=== PATIENT | female | born 1980 | race Caucasian/White ===

== ENCOUNTER 2020-08-09 08:34 | Inpatient (IN) | payer OTHER ==
[2020-08-09] MEDS ORDERED: Sodium Chloride 0.9% 1,000 ML IV STA (08:53)
[2020-08-09] MEDS ORDERED: Sodium Chloride 0.9% 10 ML Syringe FLUSH PRN (08:53)
[2020-08-09] MEDS ORDERED: Ondansetron 4 MG/2 ML SDV IVPUSH ONE (08:53)
[2020-08-09] MEDS ORDERED: HYDROmorphone 1 MG/ML Syringe IVPUSH ONE (08:55)
--- NOTE | 2020-08-09 09:01 | EDM.PDOC ---
ED HPI GENERAL MEDICAL PROBLEM - General Chief Complaint: Abdominal Pain Stated Complaint: ABDOMINAL PAIN/VOMITING Time Seen by Provider: 08/09/20 08:50 Source of Information: Reports: Patient History Limitations: Reports: No Limitations - History of Present Illness INITIAL COMMENTS - FREE TEXT/NARRATIVE: The patient presents with right upper abdominal pain. This started last night about midnight. She has nausea and vomiting. She is an [facility] [place]. She last ate at 8pm lat night. She still has her gallbladder and appendix. They gave her a shot of promethazine and tried some ibuprofen and mylanta. That has not helped. She has no fever, chills, cough, chest pain, shortness of breath, diarrhea or dysuria. Onset: Sudden Duration: Hour(s): Location: Reports: Abdomen Quality: Reports: Sharp Severity: Severe Improves with: Reports: None Worsens with: Reports: None Associated Symptoms: Reports: Nausea/Vomiting. Denies: Chest Pain, Cough, Fever/Chills, Headaches, Shortness of Breath Right Upper Abdomen Pain Score (Numeric/FACES): 8 - Related Data Allergies Allergy/AdvReac Type Severity Reaction Status Date / Time No Known Allergies Allergy Verified 08/09/20 08:43 Home Meds: Home Meds Escitalopram Oxalate [Lexapro] 20 mg PO DAILY 08/09/20 [History] Melatonin 5 mg PO BEDTIME 08/09/20 [History] Prazosin HCl [Prazosin] 2 mg PO BEDTIME 08/09/20 [History] busPIRone [Buspar] 15 mg PO BID 08/09/20 [History] Past Medical History Psychiatric History: Reports: Anxiety, Depression, PTSD Social & Family History - Tobacco Use Tobacco Use Status *Q: Former Tobacco User Used Tobacco, but Quit: Yes Month/Year Tobacco Last Used: 4 months - Recreational Drug Use Recreational Drug Use: Yes Recreational Drug Type: Reports: Marijuana/Hashish ED ROS GENERAL - Review of Systems Review Of Systems: See Below Constitutional: Reports: No Symptoms HEENT: Reports: No Symptoms Respiratory: Reports: No Symptoms Cardiovascular: Reports: No Symptoms Endocrine: Reports: No Symptoms GI/Abdominal: Reports: Abdominal Pain, Nausea, Vomiting. Denies: Diarrhea : Reports: No Symptoms Musculoskeletal: Reports: No Symptoms Skin: Reports: No Symptoms ED EXAM, GI/ABD - Physical Exam Exam: See Below Exam Limited By: No Limitations General Appearance: Alert, No Apparent Distress Ears: Normal External Exam Nose: Normal Inspection Head: Atraumatic, Normocephalic Neck: Normal Inspection Respiratory/Chest: No Respiratory Distress, Lungs Clear, Normal Breath Sounds Cardiovascular: Regular Rate, Rhythm, No Edema, No Murmur GI/Abdominal Exam: Soft, No Organomegaly, No Mass, Tender (Moderate to severe tenderness to the right upper abdomen) Back Exam: Normal Inspection Extremities: Normal Inspection Course - Vital Signs Last Recorded V/S: Last Vital Signs Temp 97.4 F 08/09/20 08:42 Pulse 81 08/09/20 08:42 Resp 20 08/09/20 08:42 BP 150/76 H 08/09/20 08:42 Pulse Ox 100 08/09/20 08:42 - Orders/Labs/Meds Orders: Active Orders 24 hr Category Date Time Status Peripheral IV Care [RC] . DIRECTED Care 08/09/20 08:53 Active Abdomen Ltd [US] Stat Exams 08/09/20 08:53 Taken Abdomen wo Cont [MR] Stat Exams 08/10/20 10:28 Ordered CORONAVIRUS COVID-19 CRISTY [MOLEC] Stat Lab 08/09/20 10:58 Received Sodium Chloride 0.9% [Saline Flush] Med 08/09/20 08:53 Active 10 ml FLUSH ASDIRECTED PRN ED Antiemetic Medication Reflex [OM.PC] Stat Oth 08/09/20 08:54 Ordered Peripheral IV Insertion Adult [OM.PC] Stat Oth 08/09/20 08:53 Ordered Medication Orders Sodium Chloride (Sodium Chloride 0.9% 10 Ml Syringe) 10 ml FLUSH ASDIRECTED PRN PRN Reason: Keep Vein Open Last Admin: 08/09/20 09:01 Dose: 10 ml Documented by: VONNIE Labs: Laboratory Tests 08/09/20 08/09/20 08/09/20 Range/Units 08:45 08:45 08:45 WBC 10.34 H (3.98-10.04) K/mm3 RBC 4.80 (3.98-5.22) M/mm3 Hgb 12.9 (11.2-15.7) gm/dl Hct 38.9 (34.1-44.9) % MCV 81.0 (79.4-94.8) fl MCH 26.9 (25.6-32.2) pg MCHC 33.2 (32.2-35.5) g/dl RDW Std Deviation 38.1 (36.4-46.3) fL Plt Count 372 H (182-369) K/mm3 MPV 9.7 (9.4-12.3) fl Neut % (Auto) 77.8 H (34.0-71.1) % Lymph % (Auto) 15.7 L (19.3-51.7) % [place] % (Auto) 5.8 (4.7-12.5) % Eos % (Auto) 0.2 L (0.7-5.8) Baso % (Auto) 0.4 (0.1-1.2) % Neut # (Auto) 8.05 H (1.56-6.13) K/mm3 Lymph # (Auto) 1.62 (1.18-3.74) K/mm3 [place] # (Auto) 0.60 H (0.24-0.36) K/mm3 Eos # (Auto) 0.02 L (0.04-0.36) K/mm3 Baso # (Auto) 0.04 (0.01-0.08) K/mm3 Manual Slide Review Normal smear Sodium 136 (136-145) mEq/L Potassium 3.8 (3.5-5.1) mEq/L Chloride 99 (98-107) mEq/L Carbon Dioxide 22 (21-32) mEq/L Anion Gap 18.8 H (5-15) BUN 12 (7-18) mg/dL Creatinine 0.9 (0.55-1.02) mg/dL Est Cr Clr Drug Dosing 64.40 mL/min Estimated GFR (MDRD) > 60 (>60) mL/min BUN/Creatinine Ratio 13.3 L (14-18) Glucose 179 H (70-99) mg/dL Calcium 9.2 (8.5-10.1) mg/dL Total Bilirubin 0.6 (0.2-1.0) mg/dL AST 18 (15-37) U/L ALT 27 (14-59) U/L Alkaline Phosphatase 59 (46-116) U/L Total Protein 7.5 (6.4-8.2) g/dl Albumin 3.6 (3.4-5.0) g/dl Globulin 3.9 gm/dL Albumin/Globulin Ratio 0.9 L (1-2) Lipase 90 (73-393) U/L HCG, Qual Negative (NEGATIVE) Urine Color (Yellow) Urine Appearance (Clear) Urine pH (5.0-8.0) Ur Specific [place] (1.005-1.030) Urine Protein (Negative) Urine Glucose (UA) (Negative) Urine Ketones (Negative) Urine Occult Blood (Negative) Urine Nitrite (Negative) Urine Bilirubin (Negative) Urine Urobilinogen (0.2-1.0) Ur Leukocyte Esterase (Negative) Urine RBC (0-5) /hpf Urine WBC (0-5) /hpf Ur Epithelial Cells (0-5) /hpf Urine Bacteria (FEW) /hpf Urine Mucus (FEW) /hpf 08/09/20 Range/Units 10:24 WBC (3.98-10.04) K/mm3 RBC (3.98-5.22) M/mm3 Hgb (11.2-15.7) gm/dl Hct (34.1-44.9) % MCV (79.4-94.8) fl MCH (25.6-32.2) pg MCHC (32.2-35.5) g/dl RDW Std Deviation (36.4-46.3) fL Plt Count (182-369) K/mm3 MPV (9.4-12.3) fl Neut % (Auto) (34.0-71.1) % Lymph % (Auto) (19.3-51.7) % [place] % (Auto) (4.7-12.5) % Eos % (Auto) (0.7-5.8) Baso % (Auto) (0.1-1.2) % Neut # (Auto) (1.56-6.13) K/mm3 Lymph # (Auto) (1.18-3.74) K/mm3 [place] # (Auto) (0.24-0.36) K/mm3 Eos # (Auto) (0.04-0.36) K/mm3 Baso # (Auto) (0.01-0.08) K/mm3 Manual Slide Review Sodium (136-145) mEq/L Potassium (3.5-5.1) mEq/L Chloride (98-107) mEq/L Carbon Dioxide (21-32) mEq/L Anion Gap (5-15) BUN (7-18) mg/dL Creatinine (0.55-1.02) mg/dL Est Cr Clr Drug Dosing mL/min Estimated GFR (MDRD) (>60) mL/min BUN/Creatinine Ratio (14-18) Glucose (70-99) mg/dL Calcium (8.5-10.1) mg/dL Total Bilirubin (0.2-1.0) mg/dL AST (15-37) U/L ALT (14-59) U/L Alkaline Phosphatase (46-116) U/L Total Protein (6.4-8.2) g/dl Albumin (3.4-5.0) g/dl Globulin gm/dL Albumin/Globulin Ratio (1-2) Lipase (73-393) U/L HCG, Qual (NEGATIVE) Urine Color Yellow (Yellow) Urine Appearance Clear (Clear) Urine pH 7.5 (5.0-8.0) Ur Specific [place] 1.025 (1.005-1.030) Urine Protein Negative (Negative) Urine Glucose (UA) Negative (Negative) Urine Ketones Negative (Negative) Urine Occult Blood Negative (Negative) Urine Nitrite Positive H (Negative) Urine Bilirubin Negative (Negative) Urine Urobilinogen 0.2 (0.2-1.0) Ur Leukocyte Esterase Negative (Negative) Urine RBC 0-5 (0-5) /hpf Urine WBC 5-10 H (0-5) /hpf Ur Epithelial Cells 5-10 H (0-5) /hpf Urine Bacteria Many H (FEW) /hpf Urine Mucus Few (FEW) /hpf Meds: Medications Generic Name Dose Route Start Last Admin Trade Name Angelica PRN Reason Stop Dose Admin Sodium Chloride 10 ml 08/09/20 08:53 08/09/20 09:01 Sodium Chloride 0.9% 10 Ml Syringe FLUSH 10 ml ASDIRECTED PRN Administration Keep Vein Open Discontinued Medications Generic Name Dose Route Start Last Admin Trade Name [place] PRN Reason Stop Dose Admin Hydromorphone HCl 1 mg 08/09/20 08:55 08/09/20 09:00 Hydromorphone 1 Mg/Ml Syringe IVPUSH 08/09/20 08:56 1 mg ONETIME ONE Administration Hydromorphone HCl 0.5 mg 08/09/20 11:00 08/09/20 11:06 Hydromorphone 0.5 Mg/0.5 Ml Syringe IVPUSH 08/09/20 11:01 0.5 mg ONETIME ONE Administration Sodium Chloride 1,000 mls @ 1,000 mls/hr 08/09/20 08:53 08/09/20 09:01 Normal Saline IV 08/09/20 09:52 1,000 mls/hr .BOLUS STA Administration Ondansetron HCl 4 mg 08/09/20 08:53 08/09/20 09:01 Ondansetron 4 Mg/2 Ml Sdv IVPUSH 08/09/20 08:54 4 mg ONETIME ONE Administration - Re-Assessments/Exams Free Text/Narrative Re-Assessment/Exam: 08/09/20 09:00 I ordered an IV NS 1L bolus, zofran 4mg IV, dilaudid 1mg IV, labs, UA and an US of her RUQ to look at her gallbladder. 08/09/20 10:32 Her WBC was elevated at 10.34. Her anion gap was elevated at 18.8. Her glucose was elevated at 179. Her lipase was normal at 90. Her HCG is negative. Her UA shows cholelithiasis without definite acute cholecystitis. Enlarged common bile duct. Question possible choledocholithiasis. A stone within the common bile duct is not directly visualized on US. Could consider MRCP for further assessment. I called Dr Lau and she will come see the patient. She is planning on admitting and getting an MRCP in the morning. I am waiting on the patient's UA. Her pain is much better. Departure - Departure Time of Disposition: 11:20 Disposition: Admitted As Inpatient 64 Condition: Fair Clinical Impression: Biliary colic, Common bile duct dilatation Cholelithiasis Qualifiers: Cholelithiasis location: gallbladder Cholecystitis presence: without cholecystitis Biliary obstruction: without biliary obstruction Qualified Code(s): K80.20 - Calculus of gallbladder without cholecystitis without obstruction - Discharge Information Sepsis Event Note (ED) - Evaluation Sepsis Screening Result: No Definite Risk - Focused Exam Vital Signs: Vital Signs Temp Pulse Resp BP Pulse Ox 08/09/20 08:42 97.4 F 81 20 150/76 H 100 - My Orders Last 24 Hours: My Active Orders 08/09/20 08:53 Peripheral IV Care [RC] . DIRECTED Abdomen Ltd [US] Stat Sodium Chloride 0.9% [Saline Flush] 10 ml FLUSH ASDIRECTED PRN Peripheral IV Insertion Adult [OM.PC] Stat 08/09/20 08:54 ED Antiemetic Medication Reflex [OM.PC] Stat 08/09/20 10:58 CORONAVIRUS COVID-19 CRISTY [MOLEC] Stat 08/10/20 10:28 Abdomen wo Cont [MR] Stat - Assessment/Plan Last 24 Hours: My Active Orders 08/09/20 08:53 Peripheral IV Care [RC] . DIRECTED Abdomen Ltd [US] Stat Sodium Chloride 0.9% [Saline Flush] 10 ml FLUSH ASDIRECTED PRN Peripheral IV Insertion Adult [OM.PC] Stat 08/09/20 08:54 ED Antiemetic Medication Reflex [OM.PC] Stat 08/09/20 10:58 CORONAVIRUS COVID-19 CRISTY [MOLEC] Stat 08/10/20 10:28 Abdomen wo Cont [MR] Stat
[2020-08-09] MEDS ORDERED: HYDROmorphone 0.5 MG/0.5 ML Syringe IVPUSH ONE (11:00)
--- NOTE | 2020-08-09 11:42 | PCM.HP.2 ---
H&P History of Present Illness - General Date of Service: 08/09/20 Admit Problem/Dx: Admission Diagnosis/Problem Admission Diagnosis/Problem Cholelithiasis Source of Information: Patient, Provider History Limitations: Reports: No Limitations - History of Present Illness Initial Comments - Free Text/Narative: The patient is a 40 y/o incarcerated female who presented from [facility] with severe RUQ abdominal pain. This was associated with nausea and vomiting. She had evaluation in the ED with laboratory studies which revealed a WBC of 10.3K, and normal liver enzymes and bilirubin. She also underwent ultrasound evaluation which revealed cholelithiasis including a 1.5cm stone and dilated bile duct without evidence of cholecystitis. She reports her pain is now resolved after receiving pain medication in the ED. She is currently denying any nausea or vomiting. She denies any previous episodes of pain. She denies any jaundice or icterus. She denies any changes in her bowel movements. She denies any pale stools or brown urine. Right Upper Abdomen Pain Score (Numeric/FACES): 8 - Related Data Allergies/Adverse Reactions: Allergies Allergy/AdvReac Type Severity Reaction Status Date / Time No Known Allergies Allergy Verified 08/09/20 08:43 Home Medications: Home Meds Escitalopram Oxalate [Lexapro] 20 mg PO DAILY 08/09/20 [History] Melatonin 5 mg PO BEDTIME 08/09/20 [History] Prazosin HCl [Prazosin] 2 mg PO BEDTIME 08/09/20 [History] busPIRone [Buspar] 15 mg PO BID 08/09/20 [History] Past Medical History Psychiatric History: Reports: Anxiety, Depression, PTSD Social & Family History - Family History Cardiac: Denies: CT Neurological: Denies: CVA Endocrine/Metabolic: Reports: Diabetes, type II Oncologic: Reports: None - Tobacco Use Tobacco Use Status *Q: Former Tobacco User Used Tobacco, but Quit: Yes Month/Year Tobacco Last Used: 4 months - Recreational Drug Use Recreational Drug Use: Yes Recreational Drug Type: Reports: Marijuana/Hashish H&P Review of Systems - Review of Systems: Review Of Systems: See Below General: Reports: No Symptoms HEENT: Reports: No Symptoms Pulmonary: Reports: No Symptoms Cardiovascular: Reports: No Symptoms Gastrointestinal: Reports: Abdominal Pain. Denies: Black Stool, Bloody Stool Genitourinary: Reports: No Symptoms Musculoskeletal: Reports: No Symptoms Skin: Reports: No Symptoms Psychiatric: Reports: No Symptoms Neurological: Reports: No Symptoms Hematologic/Lymphatic: Reports: No Symptoms Exam - Exam Exam: See Below - Vital Signs Vital Signs: Last Vital Signs Temp 36.3 C 08/09/20 08:42 Pulse 81 08/09/20 08:42 Resp 20 08/09/20 08:42 BP 150/76 H 08/09/20 08:42 Pulse Ox 100 08/09/20 08:42 Weight: 79.832 kg - Exam Quality Assessment: No: Supplemental Oxygen General: Alert, Oriented HEENT: Conjunctiva Clear, EOMI Neck: Supple Lungs: Normal Respiratory Effort Cardiovascular: Regular Rate, Regular Rhythm GI/Abdominal Exam: Soft, Non-Tender, No Distention Peripheral Pulses: 2+: Dorsalis Pedis (L), Dorsalis Pedis (R) Skin: Warm, Dry, Intact Neurological: Cranial Nerves Intact Neuro Extensive - Mental Status: Oriented x3, Normal Mood/Affect - Patient Data Lab Results Last 24 hrs: Laboratory Results - last 24 hr 08/09/20 08/09/20 08/09/20 Range/Units 08:45 08:45 08:45 WBC 10.34 H (3.98-10.04) K/mm3 RBC 4.80 (3.98-5.22) M/mm3 Hgb 12.9 (11.2-15.7) gm/dl Hct 38.9 (34.1-44.9) % MCV 81.0 (79.4-94.8) fl MCH 26.9 (25.6-32.2) pg MCHC 33.2 (32.2-35.5) g/dl RDW Std Deviation 38.1 (36.4-46.3) fL Plt Count 372 H (182-369) K/mm3 MPV 9.7 (9.4-12.3) fl Neut % (Auto) 77.8 H (34.0-71.1) % Lymph % (Auto) 15.7 L (19.3-51.7) % [place] % (Auto) 5.8 (4.7-12.5) % Eos % (Auto) 0.2 L (0.7-5.8) Baso % (Auto) 0.4 (0.1-1.2) % Neut # (Auto) 8.05 H (1.56-6.13) K/mm3 Lymph # (Auto) 1.62 (1.18-3.74) K/mm3 [place] # (Auto) 0.60 H (0.24-0.36) K/mm3 Eos # (Auto) 0.02 L (0.04-0.36) K/mm3 Baso # (Auto) 0.04 (0.01-0.08) K/mm3 Manual Slide Review Normal smear Sodium 136 (136-145) mEq/L Potassium 3.8 (3.5-5.1) mEq/L Chloride 99 (98-107) mEq/L Carbon Dioxide 22 (21-32) mEq/L Anion Gap 18.8 H (5-15) BUN 12 (7-18) mg/dL Creatinine 0.9 (0.55-1.02) mg/dL Est Cr Clr Drug Dosing 64.40 mL/min Estimated GFR (MDRD) > 60 (>60) mL/min BUN/Creatinine Ratio 13.3 L (14-18) Glucose 179 H (70-99) mg/dL Calcium 9.2 (8.5-10.1) mg/dL Total Bilirubin 0.6 (0.2-1.0) mg/dL AST 18 (15-37) U/L ALT 27 (14-59) U/L Alkaline Phosphatase 59 (46-116) U/L Total Protein 7.5 (6.4-8.2) g/dl Albumin 3.6 (3.4-5.0) g/dl Globulin 3.9 gm/dL Albumin/Globulin Ratio 0.9 L (1-2) Lipase 90 (73-393) U/L HCG, Qual Negative (NEGATIVE) Urine Color (Yellow) Urine Appearance (Clear) Urine pH (5.0-8.0) Ur Specific [place] (1.005-1.030) Urine Protein (Negative) Urine Glucose (UA) (Negative) Urine Ketones (Negative) Urine Occult Blood (Negative) Urine Nitrite (Negative) Urine Bilirubin (Negative) Urine Urobilinogen (0.2-1.0) Ur Leukocyte Esterase (Negative) Urine RBC (0-5) /hpf Urine WBC (0-5) /hpf Ur Epithelial Cells (0-5) /hpf Urine Bacteria (FEW) /hpf Urine Mucus (FEW) /hpf 05/16/21 Range/Units 10:24 WBC (3.98-10.04) K/mm3 RBC (3.98-5.22) M/mm3 Hgb (11.2-15.7) gm/dl Hct (34.1-44.9) % MCV (79.4-94.8) fl MCH (25.6-32.2) pg MCHC (32.2-35.5) g/dl RDW Std Deviation (36.4-46.3) fL Plt Count (182-369) K/mm3 MPV (9.4-12.3) fl Neut % (Auto) (34.0-71.1) % Lymph % (Auto) (19.3-51.7) % [place] % (Auto) (4.7-12.5) % Eos % (Auto) (0.7-5.8) Baso % (Auto) (0.1-1.2) % Neut # (Auto) (1.56-6.13) K/mm3 Lymph # (Auto) (1.18-3.74) K/mm3 [place] # (Auto) (0.24-0.36) K/mm3 Eos # (Auto) (0.04-0.36) K/mm3 Baso # (Auto) (0.01-0.08) K/mm3 Manual Slide Review Sodium (136-145) mEq/L Potassium (3.5-5.1) mEq/L Chloride (98-107) mEq/L Carbon Dioxide (21-32) mEq/L Anion Gap (5-15) BUN (7-18) mg/dL Creatinine (0.55-1.02) mg/dL Est Cr Clr Drug Dosing mL/min Estimated GFR (MDRD) (>60) mL/min BUN/Creatinine Ratio (14-18) Glucose (70-99) mg/dL Calcium (8.5-10.1) mg/dL Total Bilirubin (0.2-1.0) mg/dL AST (15-37) U/L ALT (14-59) U/L Alkaline Phosphatase (46-116) U/L Total Protein (6.4-8.2) g/dl Albumin (3.4-5.0) g/dl Globulin gm/dL Albumin/Globulin Ratio (1-2) Lipase (73-393) U/L HCG, Qual (NEGATIVE) Urine Color Yellow (Yellow) Urine Appearance Clear (Clear) Urine pH 7.5 (5.0-8.0) Ur Specific [place] 1.025 (1.005-1.030) Urine Protein Negative (Negative) Urine Glucose (UA) Negative (Negative) Urine Ketones Negative (Negative) Urine Occult Blood Negative (Negative) Urine Nitrite Positive H (Negative) Urine Bilirubin Negative (Negative) Urine Urobilinogen 0.2 (0.2-1.0) Ur Leukocyte Esterase Negative (Negative) Urine RBC 0-5 (0-5) /hpf Urine WBC 5-10 H (0-5) /hpf Ur Epithelial Cells 5-10 H (0-5) /hpf Urine Bacteria Many H (FEW) /hpf Urine Mucus Few (FEW) /hpf Result Diagrams: 08/09/20 08:45 08/09/20 08:45 Sepsis Event Note - Evaluation Sepsis Screening Result: No Definite Risk - Focused Exam Vital Signs: Vital Signs Temp Pulse Resp BP Pulse Ox 08/09/20 08:42 36.3 C 81 20 150/76 H 100 *Q Meaningful Use (ADM) - VTE Risk Assess *Q Each Risk Factor Represents 1 Point: Age 41 - 59 years, Minor Surgery Planned, Obesity ( BMI > 25 kg/m2) Total Score 1 Point Risk Factors: 3 - Problem List (1) Biliary colic SNOMED Code(s): 31675481 ICD Code: K80.50 - CALCULUS OF BILE DUCT W/O CHOLANGITIS OR CHOLECYST W/O O BST Status: Acute Current Visit: Yes (2) Cholelithiasis SNOMED Code(s): 869805823 ICD Code: K80.20 - CALCULUS OF GALLBLADDER W/O CHOLECYSTITIS W/O OBSTRUCTION Status: Acute Current Visit: Yes Qualifiers: Cholelithiasis location: gallbladder Cholecystitis presence: without cholecystitis Biliary obstruction: without biliary obstruction Qualified Code(s): K80.20 - Calculus of gallbladder without cholecystitis without obstruction (3) Common bile duct dilatation SNOMED Code(s): 380841251 ICD Code: K83.8 - OTHER SPECIFIED DISEASES OF BILIARY TRACT Status: Acute Current Visit: Yes Problem List Initiated/Reviewed/Updated: Yes Orders Last 24hrs: Active Orders 24 hr Category Date Time Status Admission Status [Patient Status] [ADT] Routine ADT 08/09/20 10:59 Active Peripheral IV Care [RC] . DIRECTED Care 08/09/20 08:53 Active Abdomen Ltd [US] Stat Exams 08/09/20 08:53 Taken Abdomen wo Cont [MR] Stat Exams 08/10/20 10:28 Ordered CORONAVIRUS COVID-19 CRISTY [MOLEC] Stat Lab 08/09/20 10:58 Received CULTURE URINE [RM] Stat Lab 08/09/20 10:20 Received Sodium Chloride 0.9% [Saline Flush] Med 08/09/20 08:53 Active 10 ml FLUSH ASDIRECTED PRN ED Antiemetic Medication Reflex [OM.PC] Stat Oth 08/09/20 08:54 Ordered Peripheral IV Insertion Adult [OM.PC] Stat Oth 08/09/20 08:53 Ordered Medication Orders Sodium Chloride (Sodium Chloride 0.9% 10 Ml Syringe) 10 ml FLUSH ASDIRECTED PRN PRN Reason: Keep Vein Open Last Admin: 08/09/20 09:01 Dose: 10 ml Documented by: VONNIE Assessment/Plan Comment:: 40 y/o lady with symptomatic cholelithiasis, possible choledocholithiasis - cannot evaluate fully with US - plan for MRCP in am - IVF rehydration with LR - pain control with IV dilaudid - NPO, may have home meds with sip of water Rosa Stephens MD General surgery - Mortality Measure Prognosis:: Good
[2020-08-09] MEDS ORDERED: Lactated Ringers 1,000 ML ONE (12:28)
[2020-08-09] MEDS: Citalopram 20 MG Tab PO SCH (12:33)
[2020-08-09] MEDS: Lactated Ringers 1,000 ML IV SCH ×2 (12:33→21:15)
[2020-08-09] MEDS: HYDROmorphone 0.5 MG/0.5 ML Syringe IVPUSH PRN ×3 (14:55→22:40)
[2020-08-09] MEDS: busPIRone 15 MG Tab PO SCH (20:11)
[2020-08-09] MEDS: Ondansetron 4 MG/2 ML SDV IV PRN (20:18)
[2020-08-09] MEDS ORDERED: Melatonin 3 MG Tab PO PRN (20:51)
[2020-08-09] MEDS ORDERED: Non-Formulary Medication 1 Each (Melatonin [Melatonin] 5 MG Tablet) PO SCH (21:00)
[2020-08-09] MEDS ORDERED: Prazosin 1 MG Cap PO SCH (21:00)
[2020-08-10] MEDS: HYDROmorphone 0.5 MG/0.5 ML Syringe IVPUSH PRN ×4 (02:55→11:49)
[2020-08-10] MEDS: Ondansetron 4 MG/2 ML SDV IV PRN ×2 (02:56→13:13)
[2020-08-10] MEDS: Lactated Ringers 1,000 ML IV SCH (05:24)
--- NOTE | 2020-08-10 07:43 | PCM.SURGPN ---
- General Info Date of Service: 08/10/20 Admission Diagnosis/Problem: Symptomatic cholelithiasis Functional Status: Reports: Pain Controlled, Other (nausea and vomiting after taking medications, had recurrent pain in RUQ) - Patient Data Vitals - Most Recent: Last Vital Signs Temp 36.4 C 08/10/20 03:08 Pulse 86 08/10/20 03:08 Resp 16 08/10/20 03:08 BP 119/55 L 08/10/20 03:08 Pulse Ox 92 L 08/10/20 03:08 Weight - Most Recent: 79.469 kg I&O - Last 24 Hours: Intake & Output 08/09/20 08/10/20 08/10/20 22:59 06:59 14:59 Intake Total 1350 Output Total 1200 450 Balance 150 -450 Lab Results Last 24 Hrs: Laboratory Results - last 24 hr 08/09/20 08/09/20 08/09/20 Range/Units 08:45 08:45 08:45 WBC 10.34 H (3.98-10.04) K/mm3 RBC 4.80 (3.98-5.22) M/mm3 Hgb 12.9 (11.2-15.7) gm/dl Hct 38.9 (34.1-44.9) % MCV 81.0 (79.4-94.8) fl MCH 26.9 (25.6-32.2) pg MCHC 33.2 (32.2-35.5) g/dl RDW Std Deviation 38.1 (36.4-46.3) fL Plt Count 372 H (182-369) K/mm3 MPV 9.7 (9.4-12.3) fl Neut % (Auto) 77.8 H (34.0-71.1) % Lymph % (Auto) 15.7 L (19.3-51.7) % [place] % (Auto) 5.8 (4.7-12.5) % Eos % (Auto) 0.2 L (0.7-5.8) Baso % (Auto) 0.4 (0.1-1.2) % Neut # (Auto) 8.05 H (1.56-6.13) K/mm3 Lymph # (Auto) 1.62 (1.18-3.74) K/mm3 [place] # (Auto) 0.60 H (0.24-0.36) K/mm3 Eos # (Auto) 0.02 L (0.04-0.36) K/mm3 Baso # (Auto) 0.04 (0.01-0.08) K/mm3 Manual Slide Review Normal smear Sodium 136 (136-145) mEq/L Potassium 3.8 (3.5-5.1) mEq/L Chloride 99 (98-107) mEq/L Carbon Dioxide 22 (21-32) mEq/L Anion Gap 18.8 H (5-15) BUN 12 (7-18) mg/dL Creatinine 0.9 (0.55-1.02) mg/dL Est Cr Clr Drug Dosing 64.40 mL/min Estimated GFR (MDRD) > 60 (>60) mL/min BUN/Creatinine Ratio 13.3 L (14-18) Glucose 179 H (70-99) mg/dL Calcium 9.2 (8.5-10.1) mg/dL Total Bilirubin 0.6 (0.2-1.0) mg/dL AST 18 (15-37) U/L ALT 27 (14-59) U/L Alkaline Phosphatase 59 (46-116) U/L Total Protein 7.5 (6.4-8.2) g/dl Albumin 3.6 (3.4-5.0) g/dl Globulin 3.9 gm/dL Albumin/Globulin Ratio 0.9 L (1-2) Lipase 90 (73-393) U/L HCG, Qual Negative (NEGATIVE) Urine Color (Yellow) Urine Appearance (Clear) Urine pH (5.0-8.0) Ur Specific [place] (1.005-1.030) Urine Protein (Negative) Urine Glucose (UA) (Negative) Urine Ketones (Negative) Urine Occult Blood (Negative) Urine Nitrite (Negative) Urine Bilirubin (Negative) Urine Urobilinogen (0.2-1.0) Ur Leukocyte Esterase (Negative) Urine RBC (0-5) /hpf Urine WBC (0-5) /hpf Ur Epithelial Cells (0-5) /hpf Urine Bacteria (FEW) /hpf Urine Mucus (FEW) /hpf SARS-CoV-2 RNA (CRISTY) (NEGATIVE) 08/09/20 08/09/20 08/10/20 Range/Units 10:24 10:58 06:20 WBC 8.17 (3.98-10.04) K/mm3 RBC 4.05 (3.98-5.22) M/mm3 Hgb 11.0 L D (11.2-15.7) gm/dl Hct 34.4 (34.1-44.9) % MCV 84.9 D (79.4-94.8) fl MCH 27.2 (25.6-32.2) pg MCHC 32.0 L (32.2-35.5) g/dl RDW Std Deviation 41.6 (36.4-46.3) fL Plt Count 320 (182-369) K/mm3 MPV 9.4 (9.4-12.3) fl Neut % (Auto) 65.3 (34.0-71.1) % Lymph % (Auto) 24.1 (19.3-51.7) % [place] % (Auto) 8.8 (4.7-12.5) % Eos % (Auto) 1.2 (0.7-5.8) Baso % (Auto) 0.5 (0.1-1.2) % Neut # (Auto) 5.33 (1.56-6.13) K/mm3 Lymph # (Auto) 1.97 (1.18-3.74) K/mm3 [place] # (Auto) 0.72 H (0.24-0.36) K/mm3 Eos # (Auto) 0.10 (0.04-0.36) K/mm3 Baso # (Auto) 0.04 (0.01-0.08) K/mm3 Manual Slide Review Sodium (136-145) mEq/L Potassium (3.5-5.1) mEq/L Chloride (98-107) mEq/L Carbon Dioxide (21-32) mEq/L Anion Gap (5-15) BUN (7-18) mg/dL Creatinine (0.55-1.02) mg/dL Est Cr Clr Drug Dosing mL/min Estimated GFR (MDRD) (>60) mL/min BUN/Creatinine Ratio (14-18) Glucose (70-99) mg/dL Calcium (8.5-10.1) mg/dL Total Bilirubin (0.2-1.0) mg/dL AST (15-37) U/L ALT (14-59) U/L Alkaline Phosphatase (46-116) U/L Total Protein (6.4-8.2) g/dl Albumin (3.4-5.0) g/dl Globulin gm/dL Albumin/Globulin Ratio (1-2) Lipase (73-393) U/L HCG, Qual (NEGATIVE) Urine Color Yellow (Yellow) Urine Appearance Clear (Clear) Urine pH 7.5 (5.0-8.0) Ur Specific [place] 1.025 (1.005-1.030) Urine Protein Negative (Negative) Urine Glucose (UA) Negative (Negative) Urine Ketones Negative (Negative) Urine Occult Blood Negative (Negative) Urine Nitrite Positive H (Negative) Urine Bilirubin Negative (Negative) Urine Urobilinogen 0.2 (0.2-1.0) Ur Leukocyte Esterase Negative (Negative) Urine RBC 0-5 (0-5) /hpf Urine WBC 5-10 H (0-5) /hpf Ur Epithelial Cells 5-10 H (0-5) /hpf Urine Bacteria Many H (FEW) /hpf Urine Mucus Few (FEW) /hpf SARS-CoV-2 RNA (CRISTY) Negative (NEGATIVE) 08/10/20 Range/Units 06:20 WBC (3.98-10.04) K/mm3 RBC (3.98-5.22) M/mm3 Hgb (11.2-15.7) gm/dl Hct (34.1-44.9) % MCV (79.4-94.8) fl MCH (25.6-32.2) pg MCHC (32.2-35.5) g/dl RDW Std Deviation (36.4-46.3) fL Plt Count (182-369) K/mm3 MPV (9.4-12.3) fl Neut % (Auto) (34.0-71.1) % Lymph % (Auto) (19.3-51.7) % [place] % (Auto) (4.7-12.5) % Eos % (Auto) (0.7-5.8) Baso % (Auto) (0.1-1.2) % Neut # (Auto) (1.56-6.13) K/mm3 Lymph # (Auto) (1.18-3.74) K/mm3 [place] # (Auto) (0.24-0.36) K/mm3 Eos # (Auto) (0.04-0.36) K/mm3 Baso # (Auto) (0.01-0.08) K/mm3 Manual Slide Review Sodium 140 (136-145) mEq/L Potassium 3.9 (3.5-5.1) mEq/L Chloride 106 (98-107) mEq/L Carbon Dioxide 27 (21-32) mEq/L Anion Gap 10.9 (5-15) BUN 10 (7-18) mg/dL Creatinine 0.8 (0.55-1.02) mg/dL Est Cr Clr Drug Dosing 72.45 mL/min Estimated GFR (MDRD) > 60 (>60) mL/min BUN/Creatinine Ratio 12.5 L (14-18) Glucose 131 H (70-99) mg/dL Calcium 7.8 L (8.5-10.1) mg/dL Total Bilirubin 0.8 (0.2-1.0) mg/dL AST 15 (15-37) U/L ALT 26 (14-59) U/L Alkaline Phosphatase 44 L (46-116) U/L Total Protein 5.9 L (6.4-8.2) g/dl Albumin 2.7 L (3.4-5.0) g/dl Globulin 3.2 gm/dL Albumin/Globulin Ratio 0.8 L (1-2) Lipase (73-393) U/L HCG, Qual (NEGATIVE) Urine Color (Yellow) Urine Appearance (Clear) Urine pH (5.0-8.0) Ur Specific [place] (1.005-1.030) Urine Protein (Negative) Urine Glucose (UA) (Negative) Urine Ketones (Negative) Urine Occult Blood (Negative) Urine Nitrite (Negative) Urine Bilirubin (Negative) Urine Urobilinogen (0.2-1.0) Ur Leukocyte Esterase (Negative) Urine RBC (0-5) /hpf Urine WBC (0-5) /hpf Ur Epithelial Cells (0-5) /hpf Urine Bacteria (FEW) /hpf Urine Mucus (FEW) /hpf SARS-CoV-2 RNA (CRISTY) (NEGATIVE) Med Orders - Current: Current Medications Buspirone HCl (Buspirone 15 Mg Tab) 15 mg PO BID SHAKA Last Admin: 08/09/20 20:11 Dose: 15 mg Documented by: Citalopram Hydrobromide (Citalopram 20 Mg Tab) 20 mg PO DAILY [facility] Last Admin: 08/09/20 12:33 Dose: 20 mg Documented by: Hydromorphone HCl (Hydromorphone 0.5 Mg/0.5 Ml Syringe) 0.5 mg IVPUSH Q2H PRN PRN Reason: Pain (moderate 4-6) Last Admin: 08/10/20 06:28 Dose: 0.5 mg Documented by: Potassium Chloride/Dextrose/Sod Cl (D5 1/2 Ns W/ 20 Meq/L Kcl) 1,000 mls @ 125 mls/hr IV ASDIRECTED [facility] Melatonin (Melatonin 3 Mg Tab) 6 mg PO BEDTIME PRN PRN Reason: Insomnia Ondansetron HCl (Ondansetron 4 Mg/2 Ml Sdv) 4 mg IV Q6H PRN PRN Reason: Nausea/Vomiting Last Admin: 08/10/20 02:56 Dose: 4 mg Documented by: Prazosin HCl (Prazosin 1 Mg Cap) 2 mg PO BEDTIME [facility] Last Admin: 08/09/20 20:10 Dose: 2 mg Documented by: Sodium Chloride (Sodium Chloride 0.9% 10 Ml Syringe) 10 ml FLUSH ASDIRECTED PRN PRN Reason: Keep Vein Open Last Admin: 08/09/20 09:01 Dose: 10 ml Documented by: Discontinued Medications Hydromorphone HCl (Hydromorphone 1 Mg/Ml Syringe) 1 mg IVPUSH ONETIME ONE Stop: 08/09/20 08:56 Last Admin: 08/09/20 09:00 Dose: 1 mg Documented by: Hydromorphone HCl (Hydromorphone 0.5 Mg/0.5 Ml Syringe) 0.5 mg IVPUSH ONETIME ONE Stop: 08/09/20 11:01 Last Admin: 08/09/20 11:06 Dose: 0.5 mg Documented by: Sodium Chloride (Normal Saline) 1,000 mls @ 1,000 mls/hr IV .BOLUS STA Stop: 08/09/20 09:52 Last Admin: 08/09/20 09:01 Dose: 1,000 mls/hr Documented by: Lactated Ringer's (Ringers, Lactated) 1,000 mls @ 125 mls/hr IV ASDIRECTED SHAKA Last Admin: 08/10/20 05:24 Dose: 125 mls/hr Documented by: Lactated Ringer's (Ringers, Lactated) Confirm Administered Dose 1,000 mls @ as directed .ROUTE .STK-MED ONE Stop: 08/09/20 12:29 Last Admin: 08/09/20 13:10 Dose: Not Given Documented by: Non-Formulary Medication (Melatonin [Melatonin]) 5 mg PO BEDTIME SHAKA Ondansetron HCl (Ondansetron 4 Mg/2 Ml Sdv) 4 mg IVPUSH ONETIME ONE Stop: 08/09/20 08:54 Last Admin: 08/09/20 09:01 Dose: 4 mg Documented by: - Exam General: Alert, Oriented Lungs: Normal Respiratory Effort GI/Abdominal Exam: Soft, No Distention, Tender (in RUQ) Sepsis Event Note - Evaluation Sepsis Screening Result: No Definite Risk - Focused Exam Vital Signs: Vital Signs Temp Pulse Resp BP Pulse Ox 08/10/20 03:08 36.4 C 86 16 119/55 L 92 L 08/09/20 20:15 37.0 C 89 16 100/55 L 99 08/09/20 20:10 100/55 L - Problem List & Annotations (1) Biliary colic SNOMED Code(s): 72250071 Code(s): K80.50 - CALCULUS OF BILE DUCT W/O CHOLANGITIS OR CHOLECYST W/O OBST Status: Acute Current Visit: Yes (2) Cholelithiasis SNOMED Code(s): 977267740 Code(s): K80.20 - CALCULUS OF GALLBLADDER W/O CHOLECYSTITIS W/O OBSTRUCTION Status: Acute Current Visit: Yes Qualifiers: Cholelithiasis location: gallbladder Cholecystitis presence: without cholecystitis Biliary obstruction: without biliary obstruction Qualified Code(s): K80.20 - Calculus of gallbladder without cholecystitis without obstruction (3) Common bile duct dilatation SNOMED Code(s): 539761738 Code(s): K83.8 - OTHER SPECIFIED DISEASES OF BILIARY TRACT Status: Acute Current Visit: Yes - Problem List Review Problem List Initiated/Reviewed/Updated: Yes - My Orders Last 24 Hours: Active Orders 24 hr Category Date Time Status Admission Status [Patient Status] [ADT] Routine ADT 08/09/20 10:59 Active Patient Status [ADT] Routine ADT 08/09/20 12:20 Active Antiembolic Devices [RC] DAILY Care 08/09/20 12:22 Active Intake and Output [RC] 04,16 Care 08/09/20 12:21 Active Up ad Ghada [RC] Q12HR Care 08/09/20 12:20 Active VTE/DVT Education [RC] DAILY Care 08/09/20 12:20 Active Vital Signs [RC] Q4H Care 08/09/20 12:20 Active Nothing per Oral Now Diet [DIET] Diet 08/09/20 Breakfast Active Abdomen Ltd [US] Stat Exams 08/09/20 08:53 Taken Abdomen wo Cont [MR] Stat Exams 08/10/20 10:28 Ordered CULTURE URINE [RM] Stat Lab 08/09/20 10:20 Received Citalopram [Celexa] Med 08/09/20 11:45 Active 20 mg PO DAILY Dextrose 5%-1/2 Normal Saline with KCl 20 mEq @ 125 mL/ Med 08/10/20 07:45 Ordered Hr (1000 mL) D5 1/2 NS w/ 20 mEq/L KCl 1,000 ml IV ASDIRECTED HYDROmorphone [Dilaudid] Med 08/09/20 12:20 Active 0.5 mg IVPUSH Q2H PRN Melatonin Med 08/09/20 20:51 Active 6 mg PO BEDTIME PRN Ondansetron [Zofran] Med 08/09/20 12:22 Active 4 mg IV Q6H PRN Prazosin [Minpress] Med 08/09/20 21:00 Active 2 mg PO BEDTIME Sodium Chloride 0.9% [Saline Flush] Med 08/09/20 08:53 Active 10 ml FLUSH ASDIRECTED PRN busPIRone [Buspar] Med 08/09/20 21:00 Active 15 mg PO BID ED Antiemetic Medication Reflex [OM.PC] Stat Oth 08/09/20 08:54 Ordered Peripheral IV Insertion Adult [OM.PC] Stat Oth 08/09/20 08:53 Ordered Sequential Compression Device [OM.PC] Per Unit Routine Oth 08/09/20 12:21 Ordered Resuscitation Status Routine Resus Stat 08/09/20 12:20 Ordered Medication Orders Buspirone HCl (Buspirone 15 Mg Tab) 15 mg PO BID SHAKA Last Admin: 08/09/20 20:11 Dose: 15 mg Documented by: SHAHID Citalopram Hydrobromide (Citalopram 20 Mg Tab) 20 mg PO DAILY [facility] Last Admin: 08/09/20 12:33 Dose: 20 mg Documented by: TISH Hydromorphone HCl (Hydromorphone 0.5 Mg/0.5 Ml Syringe) 0.5 mg IVPUSH Q2H PRN PRN Reason: Pain (moderate 4-6) Last Admin: 08/10/20 06:28 Dose: 0.5 mg Documented by: Admin: 08/10/20 02:55 Dose: 0.5 mg Documented by: Admin: 08/09/20 22:40 Dose: 0.5 mg Documented by: Admin: 08/09/20 18:50 Dose: 0.5 mg Documented by: Admin: 08/09/20 14:55 Dose: 0.5 mg Documented by: TISH Potassium Chloride/Dextrose/Sod Cl (D5 1/2 Ns W/ 20 Meq/L Kcl) 1,000 mls @ 125 mls/hr IV ASDIRECTED [facility] Melatonin (Melatonin 3 Mg Tab) 6 mg PO BEDTIME PRN PRN Reason: Insomnia Ondansetron HCl (Ondansetron 4 Mg/2 Ml Sdv) 4 mg IV Q6H PRN PRN Reason: Nausea/Vomiting Last Admin: 08/10/20 02:56 Dose: 4 mg Documented by: Admin: 08/09/20 20:18 Dose: 4 mg Documented by: SHAHID Prazosin HCl (Prazosin 1 Mg Cap) 2 mg PO BEDTIME [facility] Last Admin: 08/09/20 20:10 Dose: 2 mg Documented by: SHAHID Sodium Chloride (Sodium Chloride 0.9% 10 Ml Syringe) 10 ml FLUSH ASDIRECTED PRN PRN Reason: Keep Vein Open Last Admin: 08/09/20 09:01 Dose: 10 ml Documented by: MTKAT - Assessment Assessment (Free Text/Narrative):: 40 y/o lady with symptomatic cholelithiasis, recurrence of pain - plan for MRCP this am - continue NPO - IVF change to D5 1/2 NS with 20KCl @125 will make surgical plan based on results of the MRCP. No elevation in total bilirubin level. Rosa Stephens MD General surgery
[2020-08-10] MEDS ORDERED: D5 1/2 NS w/ 20 mEq/L KCl 1,000 ML IV SCH (07:45)
--- NOTE | 2020-08-10 07:48 | US ---
Limited abdominal ultrasound: Multiple real-time images were obtained of the upper right abdomen. Comparison: No prior abdominal imaging is available. Liver shows no focal parenchymal abnormality. Gallbladder shows two large gallstones. No gallbladder wall thickening is seen. Common bile duct is slightly enlarged at 9 mm. Visualized portions of the pancreas show no focal abnormality. Main portal vein shows normal hepatopedal flow. Right kidney shows no hydronephrosis or mass. Right kidney has a length of 10.9 cm. Impression: 1. Two large gallstones. No gallbladder wall thickening is seen. 2. Slightly dilated CBD, MRCP could be considered to further evaluate for nonvisualized CBD stone. 3. No additional abnormality is appreciated on right upper quadrant abdominal ultrasound. Diagnostic code #3 I agree with preliminary report from [email or web address], finalized on 08/09/20, 11:02 AM CDT, code 1
[2020-08-10] MEDS: busPIRone 15 MG Tab PO SCH (08:32)
[2020-08-10] MEDS: Citalopram 20 MG Tab PO SCH (08:32)
--- NOTE | 2020-08-10 11:41 | MR ---
MRI abdomen Technique: Various axial images and coronal images were obtained through the abdomen. MRCP was also performed. Comparison: Prior abdominal ultrasound study of 08/09/20. Findings: Gallbladder shows evidence of three low signal abnormalities compatible with fairly large gallstones. Largest gallstone measures approximately 1.4 cm. Fluid is seen around the gallbladder. Common bile duct and common hepatic duct measure up to 8 mm. There are no filling defects seen to indicate stones within the extrahepatic biliary tree. Kidneys show no discrete abnormality. Liver shows no focal abnormality. Small amount of fluid is seen posterior to the liver. Spleen size is normal. Upper visualized abdominal aorta shows no aneurysm. Visualized pancreas shows no discrete abnormality. Impression: 1. Three gallstones are present. 2. Fluid around the gallbladder. Minimal fluid around the liver. Uncertain as to etiology of the fluid and please correlate if patient has symptoms of cholelithiasis. 3. CHD and CBD are slightly prominent at 8 mm but no evidence of retained stone is seen within either of these extrahepatic ducts. 4. No additional abnormality is seen. Diagnostic code #3
[2020-08-10] MEDS ORDERED: Lidocaine 1% with EPINEPHrine 1:100,000 10 ML MDV ONE (13:41)
[2020-08-10] MEDS ORDERED: Bupivacaine 0.5% 30 ML SDV ONE (13:42)
--- NOTE | 2020-08-10 13:51 | PCM.PREANE ---
Preanesthetic Assessment - Procedure Proposed Procedure: Laparoscopic Cholecystectomy - Anesthesia/Transfusion/Family Hx Anesthesia History: Prior Anesthesia Without Reaction Family History of Anesthesia Reaction: No Transfusion History: No Prior Transfusion(s) Intubation History: Unknown - Review of Systems General: No Symptoms, Fatigue Pulmonary: No Symptoms (Former smoker: Mar 2020 History of marijuana use./March 2020) Cardiovascular: No Symptoms Gastrointestinal: No Symptoms (GERD), Nausea, Vomiting Neurological: No Symptoms Other: Reports: None, Depression (PTSD), Anxiety - Physical Assessment NPO Status Date: 08/08/20 NPO Status Time: 20:00 Vital Signs: Last Vital Signs Temp 37.1 C 08/10/20 11:50 Pulse 84 08/10/20 11:50 Resp 16 08/10/20 11:50 BP 93/45 L 08/10/20 11:50 Pulse Ox 94 L 08/10/20 11:50 Height: 1.57 m Weight: 79.469 kg ASA Class: 2E Mental Status: Alert & Oriented x3 Airway Class: Mallampati = 2 Dentition: Reports: Normal Dentition, Caries Thyro-Mental Finger Breadths: 3 Mouth Opening Finger Breadths: 3 ROM/Head Extension: Full Lungs: Clear to Auscultation, Normal Respiratory Effort Cardiovascular: Regular Rate, Regular Rhythm, No Murmurs - Lab Values: Laboratory Last Values WBC 8.17 K/mm3 (3.98-10.04) 08/10/20 06:20 RBC 4.05 M/mm3 (3.98-5.22) 08/10/20 06:20 Hgb 11.0 gm/dl (11.2-15.7) L D 08/10/20 06:20 Hct 34.4 % (34.1-44.9) 08/10/20 06:20 MCV 84.9 fl (79.4-94.8) D 08/10/20 06:20 MCH 27.2 pg (25.6-32.2) 08/10/20 06:20 MCHC 32.0 g/dl (32.2-35.5) L 08/10/20 06:20 RDW Std Deviation 41.6 fL (36.4-46.3) 08/10/20 06:20 Plt Count 320 K/mm3 (182-369) 08/10/20 06:20 MPV 9.4 fl (9.4-12.3) 08/10/20 06:20 Neut % (Auto) 65.3 % (34.0-71.1) 08/10/20 06:20 Lymph % (Auto) 24.1 % (19.3-51.7) 08/10/20 06:20 [place] % (Auto) 8.8 % (4.7-12.5) 08/10/20 06:20 Eos % (Auto) 1.2 (0.7-5.8) 08/10/20 06:20 Baso % (Auto) 0.5 % (0.1-1.2) 08/10/20 06:20 Neut # (Auto) 5.33 K/mm3 (1.56-6.13) 08/10/20 06:20 Lymph # (Auto) 1.97 K/mm3 (1.18-3.74) 08/10/20 06:20 [place] # (Auto) 0.72 K/mm3 (0.24-0.36) H 08/10/20 06:20 Eos # (Auto) 0.10 K/mm3 (0.04-0.36) 08/10/20 06:20 Baso # (Auto) 0.04 K/mm3 (0.01-0.08) 08/10/20 06:20 Manual Slide Review Normal smear 08/09/20 08:45 Sodium 140 mEq/L (136-145) 08/10/20 06:20 Potassium 3.9 mEq/L (3.5-5.1) 08/10/20 06:20 Chloride 106 mEq/L (98-107) 08/10/20 06:20 Carbon Dioxide 27 mEq/L (21-32) 08/10/20 06:20 Anion Gap 10.9 (5-15) 08/10/20 06:20 BUN 10 mg/dL (7-18) 08/10/20 06:20 Creatinine 0.8 mg/dL (0.55-1.02) 08/10/20 06:20 Est Cr Clr Drug Dosing 72.45 mL/min 08/10/20 06:20 Estimated GFR (MDRD) > 60 mL/min (>60) 08/10/20 06:20 BUN/Creatinine Ratio 12.5 (14-18) L 08/10/20 06:20 Glucose 131 mg/dL (70-99) H 08/10/20 06:20 Calcium 7.8 mg/dL (8.5-10.1) L 08/10/20 06:20 Total Bilirubin 0.8 mg/dL (0.2-1.0) 08/10/20 06:20 AST 15 U/L (15-37) 08/10/20 06:20 ALT 26 U/L (14-59) 08/10/20 06:20 Alkaline Phosphatase 44 U/L (46-116) L 08/10/20 06:20 Total Protein 5.9 g/dl (6.4-8.2) L 08/10/20 06:20 Albumin 2.7 g/dl (3.4-5.0) L 08/10/20 06:20 Globulin 3.2 gm/dL 08/10/20 06:20 Albumin/Globulin Ratio 0.8 (1-2) L 08/10/20 06:20 Lipase 90 U/L (73-393) 08/09/20 08:45 HCG, Qual Negative (NEGATIVE) 08/09/20 08:45 Urine Color Yellow (Yellow) 08/09/20 10:24 Urine Appearance Clear (Clear) 08/09/20 10:24 Urine pH 7.5 (5.0-8.0) 08/09/20 10:24 Ur Specific Axis 1.025 (1.005-1.030) 08/09/20 10:24 Urine Protein Negative (Negative) 08/09/20 10:24 Urine Glucose (UA) Negative (Negative) 08/09/20 10:24 Urine Ketones Negative (Negative) 08/09/20 10:24 Urine Occult Blood Negative (Negative) 08/09/20 10:24 Urine Nitrite Positive (Negative) H 08/09/20 10:24 Urine Bilirubin Negative (Negative) 08/09/20 10:24 Urine Urobilinogen 0.2 (0.2-1.0) 08/09/20 10:24 Ur Leukocyte Esterase Negative (Negative) 08/09/20 10:24 Urine RBC 0-5 /hpf (0-5) 08/09/20 10:24 Urine WBC 5-10 /hpf (0-5) H 08/09/20 10:24 Ur Epithelial Cells 5-10 /hpf (0-5) H 08/09/20 10:24 Urine Bacteria Many /hpf (FEW) H 08/09/20 10:24 Urine Mucus Few /hpf (FEW) 08/09/20 10:24 SARS-CoV-2 RNA (CRISTY) Negative (NEGATIVE) 08/09/20 10:58 Above labs reviewed and noted and within acceptable ranges to proceed with procedure. 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: Psychiatric History: Reports: Anxiety, Depression, PTSD - Past Surgical History Female Surgical History: Reports: Tubal Ligation - SUBSTANCE USE Tobacco Use Status *Q: Former Tobacco User Tobacco Use Within Last Twelve Months: Cigarettes Recreational Drug Use History: Yes Recreational Drug Type: Reports: Methamphetamine Recreational Drug Last Use: march 2020 - HOME MEDS Home Medications: Home Meds Escitalopram Oxalate [Lexapro] 20 mg PO DAILY 08/09/20 [History] Prazosin HCl [Prazosin] 2 mg PO BEDTIME 08/09/20 [History] busPIRone [Buspar] 15 mg PO BID 08/09/20 [History] - CURRENT (IN HOUSE) MEDS Current Meds: Current Medications Buspirone HCl (Buspirone 15 Mg Tab) 15 mg PO BID [facility] Last Admin: 08/10/20 08:32 Dose: 15 mg Documented by: Citalopram Hydrobromide (Citalopram 20 Mg Tab) 20 mg PO DAILY [facility] Last Admin: 08/10/20 08:32 Dose: 20 mg Documented by: Hydromorphone HCl (Hydromorphone 0.5 Mg/0.5 Ml Syringe) 0.5 mg IVPUSH Q2H PRN PRN Reason: Pain (moderate 4-6) Last Admin: 08/10/20 11:49 Dose: 0.5 mg Documented by: Potassium Chloride/Dextrose/Sod Cl (D5 1/2 Ns W/ 20 Meq/L Kcl) 1,000 mls @ 125 mls/hr IV ASDIRECTED [facility] Last Admin: 08/10/20 08:29 Dose: 125 mls/hr Documented by: Melatonin (Melatonin 3 Mg Tab) 6 mg PO BEDTIME PRN PRN Reason: Insomnia Ondansetron HCl (Ondansetron 4 Mg/2 Ml Sdv) 4 mg IV Q6H PRN PRN Reason: Nausea/Vomiting Last Admin: 08/10/20 13:13 Dose: 4 mg Documented by: Prazosin HCl (Prazosin 1 Mg Cap) 2 mg PO BEDTIME SHAKA Last Admin: 08/09/20 20:10 Dose: 2 mg Documented by: Sodium Chloride (Sodium Chloride 0.9% 10 Ml Syringe) 10 ml FLUSH ASDIRECTED PRN PRN Reason: Keep Vein Open Last Admin: 08/09/20 09:01 Dose: 10 ml Documented by: Discontinued Medications Bupivacaine HCl (Bupivacaine 0.5% 30 Ml Sdv) Confirm Administered Dose 30 ml .ROUTE .STK-MED ONE Stop: 08/10/20 13:43 Hydromorphone HCl (Hydromorphone 1 Mg/Ml Syringe) 1 mg IVPUSH ONETIME ONE Stop: 08/09/20 08:56 Last Admin: 08/09/20 09:00 Dose: 1 mg Documented by: Hydromorphone HCl (Hydromorphone 0.5 Mg/0.5 Ml Syringe) 0.5 mg IVPUSH ONETIME ONE Stop: 08/09/20 11:01 Last Admin: 08/09/20 11:06 Dose: 0.5 mg Documented by: Sodium Chloride (Normal Saline) 1,000 mls @ 1,000 mls/hr IV .BOLUS STA Stop: 08/09/20 09:52 Last Admin: 08/09/20 09:01 Dose: 1,000 mls/hr Documented by: Lactated Ringer's (Ringers, Lactated) 1,000 mls @ 125 mls/hr IV ASDIRECTED [facility] Last Admin: 08/10/20 05:24 Dose: 125 mls/hr Documented by: Lactated Ringer's (Ringers, Lactated) Confirm Administered Dose 1,000 mls @ as directed .ROUTE .STK-MED ONE Stop: 08/09/20 12:29 Last Admin: 08/09/20 13:10 Dose: Not Given Documented by: Lidocaine/Epinephrine (Lidocaine 1% With Epinephrine 1:100,000 10 Ml Mdv) Confirm Administered Dose 30 ml .ROUTE .STK-MED ONE Stop: 08/10/20 13:42 Non-Formulary Medication (Melatonin [Melatonin]) 5 mg PO BEDTIME SHAKA Ondansetron HCl (Ondansetron 4 Mg/2 Ml Sdv) 4 mg IVPUSH ONETIME ONE Stop: 08/09/20 08:54 Last Admin: 08/09/20 09:01 Dose: 4 mg Documented by:
[2020-08-10] MEDS ORDERED: Bupivacaine 0.5%/EPINEPHrine 1:200,000 50 ML MDV ONE (14:00)
[2020-08-10] MEDS ORDERED: Propofol 200 MG/20 ML SDV ONE (14:05)
[2020-08-10] MEDS ORDERED: Midazolam 1 MG/ML 2 ML SDV ONE (14:05)
[2020-08-10] MEDS ORDERED: Rocuronium 50 MG/5 ML Vial ONE (14:05)
[2020-08-10] MEDS ORDERED: Ondansetron 4 MG/2 ML SDV ONE (14:05)
[2020-08-10] MEDS ORDERED: Lidocaine 1% 4 ML ONE (14:06)
[2020-08-10] MEDS ORDERED: fentaNYL 250 MCG/5 ML SDV ONE (14:06)
[2020-08-10] MEDS ORDERED: ceFAZolin 1 GM Vial ONE (14:37)
[2020-08-10] MEDS ORDERED: HYDROmorphone 0.5 MG/0.5 ML Syringe ONE (14:48)
[2020-08-10] MEDS ORDERED: Lactated Ringers 1,000 ML ONE (15:00)
[2020-08-10] MEDS ORDERED: Dexamethasone 4 MG/ML 5 ML MDV ONE (15:03)
[2020-08-10] MEDS ORDERED: Ketorolac 30 MG/ML SDV ONE (15:20)
--- NOTE | 2020-08-10 15:32 | PCM.OPNOTE ---
- General Post-Op/Procedure Note Date of Surgery/Procedure: 08/10/20 Operative Procedure(s): laparoscopic cholecystectomy Findings: cholecystitis with gallbladder wall edema Pre Op Diagnosis: cholelithiasis and cholecystitis Post-Op Diagnosis: same Anesthesia Technique: General ET Tube, Local Primary Surgeon: Rosa Stephens Anesthesia Provider: Shay Muñoz Pathology: gallbladder Fluid Replacement, Intraop: 1,500 Output, Urine Amount: 0 EBL in mLs: 5 Complications: none apparent Condition: Good Free Text/Narrative:: Intake & Output 08/10/20 08/10/20 08/10/20 06:59 14:59 22:59 Output Total 450 Balance -450
--- NOTE | 2020-08-10 15:43 | PCM.PRNOTE ---
- Free Text/Narrative Note: OPERATIVE REPORT Date of Surgery/Procedure: August 10, 2020 Operative Procedure(s): laparoscopic cholecystectomy Findings: cholecystitis and gallbladder wall edema Pre Op Diagnosis: cholelithiasis and cholecystitis Post-Op Diagnosis: Same Anesthesia Technique: General ET Tube Primary Surgeon: Rosa Stephens MD Anesthesia Provider: Shay Muñoz CRNA Pathology: Gallbladder with stones Fluid Replacement, Intraop: 1500cc Output, Urine Amount: 0cc EBL: 5cc Drain/Tube Comments: none Indication for the procedure: The patient is a 40-year-old lady who presented to the ED with acute RUQ abdominal pain. She had imaging concerning for choledocholithiasis, so was admitted for MRCP. She had return of her pain after admission, and gallbladder edema consistent with cholecystitis as seen on the MRCP, but no evidence of choledocholithiasis. The patient was counseled for laparoscopic cholecystectomy, with possible conversion to open. After discussion of the risks of infection, bleeding and injury to the bile duct as well as increased complication from previous intra-abdominal surgery, the patient's consent was obtained. Description of the procedure: The patient presented to the outpatient holding area on the day of the procedure. The history and physical were verified and consent was present and on the chart. The patient was taken back to the operating room and placed in supine position on the operating table. SCD boots were placed and functional prior to the start of the procedure. Preoperative antibiotics were administered according to SCIP protocol, Ancef 2 g IV. A surgical timeout was performed. The patient then had induction of general anesthesia and was intubated without difficulty. The patient was prepped and draped in standard surgical fashion. We began by making an infraumbilical vertical incision and deepened this down through subcutaneous fat to the level of the fascia. This was grasped and incised. We bluntly entered through the peritoneum and a finger sweep was done. A stay suture of 0 Vicryl was placed in the fascia. The 12 mm balloon [place] port was then inserted into the abdomen and the balloon inflated. Insufflation was attached and we had appropriate opening pressures. The abdomen was then insufflated to 15 mmHg. We inserted a scope into the abdomen. A TAP block was then performed using 1% lidocaine with epinephrine mixed with 0.5% bupivacaine with epinephrine. We then proceeded with placing our additional ports. A 5mm port was placed in t he epigastric region. Two additional 5mm ports placed under direct visualization in the right upper quadrant. The patient was then positioned with head up and right side up to facilitate exposure of the gallbladder. Once we had sufficiently exposed the dome of the gallbladder. This was grasped and retracted cephalad. We proceeded with our dissection to expose the cystic duct and cystic artery. We did have a critical view. The cystic duct and artery were then clipped and cut using endoscopic scissors. We then proceeded to fully dissect the gallbladder off of the cystic plate using the Bovie device. RayTecs were used to mop up the edematous fluid and any blood. The gallbladder was then placed in the Endo Catch bag and withdrawn towards the umbilical port. We then inspected the area of the dissection. The Bovie was used on the liver bed until there was no significant bleeding and hemostasis was achieved. We then inspected the port sites and desufflated the abdomen. The gallbladder was withdrawn through the umbilical port site. We then proceeded to close the umbilical port site using an 0 Vicryl stitch. We had good closure of the fascia. The ports were removed. A superficial 4-0 monocryl suture was used to approximate the skin at each port site. The skin was covered with Dermabond surgical glue. The patient tolerated the procedure well and was extubated without difficulty. She was transported to the PACU in stable condition. All sponge, needle counts correct. No immediate complications noted. Complications: None apparent Condition: Good Rosa Stephens MD General Surgery
[2020-08-10] MEDS ORDERED: fentaNYL 100 MCG/2 ML SDV IVPUSH PRN (15:47)
--- NOTE | 2020-08-10 15:48 | PCM.POSTAN ---
POST ANESTHESIA ASSESSMENT - MENTAL STATUS Mental Status: Alert, Oriented - VITAL SIGNS Vital Signs: Last Vital Signs Temp 37.1 C 08/10/20 11:50 Pulse 84 08/10/20 11:50 Resp 16 08/10/20 11:50 BP 93/45 L 08/10/20 11:50 Pulse Ox 94 L 08/10/20 11:50 - RESPIRATORY Respiratory Status: Respiratory Rate WNL, Airway Patent, O2 Saturation Stable, Supplemental Oxygen - CARDIOVASCULAR CV Status: Pulse Rate WNL, Blood Pressure Stable - GASTROINTESTINAL GI Status: No Symptoms - PAIN Pain Score: 0 - POST OP HYDRATION Hydration Status: Adequate & Stable - OBSERVATIONS Free Text/Narrative:: no anesthesia complications noted
--- NOTE | 2020-08-10 15:56 | PCM.DCSUM1 ---
Discharge Summary - Hospital Course Free Text/Narrative:: The patient is a 40 y/o lady who presented with RUQ pain, she had concern for choledocholithiasis as well as symptomatic cholelithiasis. She was admitted for pain control and MRCP, which indicated findings of cholecystitis, but no choledocholithiasis. She underwent a laparoscopic cholecystectomy on HOD 1, and was discharged back to longterm. Modified Craig Scale: No Signif.Disability Despite Sympt.Able to Carry Out Usual Act./Duties Modified Craig Scale Score: 1 - Discharge Data Discharge Date: 08/10/20 Discharge Disposition: DC/Tfer to Other 70 Condition: Good - Referral to Home Health Primary Care Physician: Mone Melendrez PA-C - Discharge Diagnosis/Problem(s) (1) Biliary colic SNOMED Code(s): 19720740 ICD Code: K80.50 - CALCULUS OF BILE DUCT W/O CHOLANGITIS OR CHOLECYST W/O OBST Status: Acute Current Visit: Yes (2) Cholelithiasis SNOMED Code(s): 163352218 ICD Code: K80.20 - CALCULUS OF GALLBLADDER W/O CHOLECYSTITIS W/O OBSTRUCTION Status: Acute Current Visit: Yes Qualifiers: Cholelithiasis location: gallbladder Cholecystitis presence: without cholecystitis Biliary obstruction: without biliary obstruction Qualified Code(s): K80.20 - Calculus of gallbladder without cholecystitis without obstruction (3) Common bile duct dilatation SNOMED Code(s): 530522729 ICD Code: K83.8 - OTHER SPECIFIED DISEASES OF BILIARY TRACT Status: Acute Current Visit: Yes - Patient Summary/Data Operative Procedure(s) Performed: laparoscopic cholecystectomy - Patient Instructions Diet: Usual Diet as Tolerated Activity: As Tolerated, No Lifting Over 20 Pounds (for 2 weeks), No Lifting Over 25 Pounds (for 4 weeks) Showering/Bathing: May Shower, No Tub Bathing/Swimming (for 2 weeks) Notify Provider of: Fever, Increased Pain, Swelling and Redness, Drainage, Nausea and/or Vomiting - Discharge Plan *PRESCRIPTION DRUG MONITORING PROGRAM REVIEWED*: Not Applicable *COPY OF PRESCRIPTION DRUG MONITORING REPORT IN PATIENT MISSY: Not Applicable Prescriptions/Med Rec: Docusate Sodium [Colace] 100 mg PO BID 20 Days #40 cap Ibuprofen 600 mg PO Q6H PRN 14 Days #80 tablet PRN Reason: Pain (Mild 1-3) Acetaminophen/HYDROcodone [[place] 325-5 MG] 1 tab PO Q4H PRN 14 Days #20 tablet PRN Reason: Pain (Moderate 4-6) Home Medications: Home Meds Escitalopram Oxalate [Lexapro] 20 mg PO DAILY 08/09/20 [History] Prazosin HCl [Prazosin] 2 mg PO BEDTIME 08/09/20 [History] busPIRone [Buspar] 15 mg PO BID 08/09/20 [History] Acetaminophen/HYDROcodone [[place] 325-5 MG] 1 tab PO Q4H PRN 14 Days #20 tablet 08/10/20 [Rx] Docusate Sodium [Colace] 100 mg PO BID 20 Days #40 cap 08/10/20 [Rx] Ibuprofen 600 mg PO Q6H PRN 14 Days #80 tablet 08/10/20 [Rx] Forms: ED Department Discharge Referrals: Mone Melendrez PA-C [Primary Care Provider] - Alissa Armendariz TIMBER DEADENER [Nurse Practitioner] - (follow up in 2 weeks Call [phone] to schedule) - Discharge Summary/Plan Comment DC Time >30 min.: No - Patient Data Vitals - Most Recent: Last Vital Signs Temp 37.1 C 08/10/20 11:50 Pulse 84 08/10/20 11:50 Resp 16 08/10/20 11:50 BP 93/45 L 08/10/20 11:50 Pulse Ox 94 L 08/10/20 11:50 Weight - Most Recent: 79.469 kg I&O - Last 24 hours: Intake & Output 08/10/20 08/10/20 08/10/20 06:59 14:59 22:59 Intake Total 1500 Output Total 450 0 Balance -450 1500 Lab Results - Last 24 hrs: Laboratory Results - last 24 hr 08/10/20 08/10/20 Range/Units 06:20 06:20 WBC 8.17 (3.98-10.04) K/mm3 RBC 4.05 (3.98-5.22) M/mm3 Hgb 11.0 L D (11.2-15.7) gm/dl Hct 34.4 (34.1-44.9) % MCV 84.9 D (79.4-94.8) fl MCH 27.2 (25.6-32.2) pg MCHC 32.0 L (32.2-35.5) g/dl RDW Std Deviation 41.6 (36.4-46.3) fL Plt Count 320 (182-369) K/mm3 MPV 9.4 (9.4-12.3) fl Neut % (Auto) 65.3 (34.0-71.1) % Lymph % (Auto) 24.1 (19.3-51.7) % [place] % (Auto) 8.8 (4.7-12.5) % Eos % (Auto) 1.2 (0.7-5.8) Baso % (Auto) 0.5 (0.1-1.2) % Neut # (Auto) 5.33 (1.56-6.13) K/mm3 Lymph # (Auto) 1.97 (1.18-3.74) K/mm3 [place] # (Auto) 0.72 H (0.24-0.36) K/mm3 Eos # (Auto) 0.10 (0.04-0.36) K/mm3 Baso # (Auto) 0.04 (0.01-0.08) K/mm3 Sodium 140 (136-145) mEq/L Potassium 3.9 (3.5-5.1) mEq/L Chloride 106 (98-107) mEq/L Carbon Dioxide 27 (21-32) mEq/L Anion Gap 10.9 (5-15) BUN 10 (7-18) mg/dL Creatinine 0.8 (0.55-1.02) mg/dL Est Cr Clr Drug Dosing 72.45 mL/min Estimated GFR (MDRD) > 60 (>60) mL/min BUN/Creatinine Ratio 12.5 L (14-18) Glucose 131 H (70-99) mg/dL Calcium 7.8 L (8.5-10.1) mg/dL Total Bilirubin 0.8 (0.2-1.0) mg/dL AST 15 (15-37) U/L ALT 26 (14-59) U/L Alkaline Phosphatase 44 L (46-116) U/L Total Protein 5.9 L (6.4-8.2) g/dl Albumin 2.7 L (3.4-5.0) g/dl Globulin 3.2 gm/dL Albumin/Globulin Ratio 0.8 L (1-2) SALOMÓN Results - Last 24 hrs: Microbiology 08/09/20 10:20 Urine Culture - Preliminary Urine, Bladder Gram Negative Rods Med Orders - Current: Current Medications Buspirone HCl (Buspirone 15 Mg Tab) 15 mg PO BID [facility] Last Admin: 08/10/20 08:32 Dose: 15 mg Documented by: Citalopram Hydrobromide (Citalopram 20 Mg Tab) 20 mg PO DAILY [facility] Last Admin: 08/10/20 08:32 Dose: 20 mg Documented by: Fentanyl (Fentanyl 100 Mcg/2 Ml Sdv) 50 mcg IVPUSH Q5M PRN PRN Reason: Pain Stop: 08/10/20 18:00 Hydromorphone HCl (Hydromorphone 0.5 Mg/0.5 Ml Syringe) 0.5 mg IVPUSH Q2H PRN PRN Reason: Pain (moderate 4-6) Last Admin: 08/10/20 11:49 Dose: 0.5 mg Documented by: Potassium Chloride/Dextrose/Sod Cl (D5 1/2 Ns W/ 20 Meq/L Kcl) 1,000 mls @ 125 mls/hr IV ASDIRECTED [facility] Last Admin: 08/10/20 08:29 Dose: 125 mls/hr Documented by: Melatonin (Melatonin 3 Mg Tab) 6 mg PO BEDTIME PRN PRN Reason: Insomnia Ondansetron HCl (Ondansetron 4 Mg/2 Ml Sdv) 4 mg IV Q6H PRN PRN Reason: Nausea/Vomiting Last Admin: 08/10/20 13:13 Dose: 4 mg Documented by: Prazosin HCl (Prazosin 1 Mg Cap) 2 mg PO BEDTIME [facility] Last Admin: 08/09/20 20:10 Dose: 2 mg Documented by: Sodium Chloride (Sodium Chloride 0.9% 10 Ml Syringe) 10 ml FLUSH ASDIRECTED PRN PRN Reason: Keep Vein Open Last Admin: 08/09/20 09:01 Dose: 10 ml Documented by: Discontinued Medications Bupivacaine HCl (Bupivacaine 0.5% 30 Ml Sdv) Confirm Administered Dose 30 ml .ROUTE .STK-MED ONE Stop: 08/10/20 13:43 Bupivacaine HCl/Epinephrine Bitart (Bupivacaine 0.5%/Epinephrine 1:200,000 50 Ml Mdv) 50 ml .ROUTE .STK-MED ONE Stop: 08/10/20 14:01 Cefazolin Sodium (Cefazolin 1 Gm Vial) Confirm Administered Dose 2 gm .ROUTE .STK-MED ONE Stop: 08/10/20 14:38 Dexamethasone (Dexamethasone 4 Mg/Ml 5 Ml Mdv) Confirm Administered Dose 20 mg .ROUTE .STK-MED ONE Stop: 08/10/20 15:04 Fentanyl (Fentanyl 250 Mcg/5 Ml Sdv) Confirm Administered Dose 250 mcg .ROUTE .STK-MED ONE Stop: 08/10/20 14:07 Hydromorphone HCl (Hydromorphone 1 Mg/Ml Syringe) 1 mg IVPUSH ONETIME ONE Stop: 08/09/20 08:56 Last Admin: 08/09/20 09:00 Dose: 1 mg Documented by: Hydromorphone HCl (Hydromorphone 0.5 Mg/0.5 Ml Syringe) 0.5 mg IVPUSH ONETIME O NE Stop: 08/09/20 11:01 Last Admin: 08/09/20 11:06 Dose: 0.5 mg Documented by: Hydromorphone HCl (Hydromorphone 0.5 Mg/0.5 Ml Syringe) Confirm Administered Dose 0.5 mg .ROUTE .STK-MED ONE Stop: 08/10/20 14:49 Sodium Chloride (Normal Saline) 1,000 mls @ 1,000 mls/hr IV .BOLUS STA Stop: 08/09/20 09:52 Last Admin: 08/09/20 09:01 Dose: 1,000 mls/hr Documented by: Lactated Ringer's (Ringers, Lactated) 1,000 mls @ 125 mls/hr IV ASDIRECTED [facility] Last Admin: 08/10/20 05:24 Dose: 125 mls/hr Documented by: Lactated Ringer's (Ringers, Lactated) Confirm Administered Dose 1,000 mls @ as directed .ROUTE .STK-MED ONE Stop: 08/09/20 12:29 Last Admin: 08/09/20 13:10 Dose: Not Given Documented by: Lidocaine HCl (Xylocaine-Mpf 1%) Confirm Administered Dose 4 mls @ as directed .ROUTE .STK-MED ONE Stop: 08/10/20 14:07 Lactated Ringer's (Ringers, Lactated) Confirm Administered Dose 1,000 mls @ as directed .ROUTE .STK-MED ONE Stop: 08/10/20 15:01 Ketorolac Tromethamine (Ketorolac 30 Mg/Ml Sdv) Confirm Administered Dose 30 mg .ROUTE .STK-MED ONE Stop: 08/10/20 15:21 Lidocaine/Epinephrine (Lidocaine 1% With Epinephrine 1:100,000 10 Ml Mdv) Confirm Administered Dose 30 ml .ROUTE .STK-MED ONE Stop: 08/10/20 13:42 Midazolam HCl (Midazolam 1 Mg/Ml 2 Ml Sdv) Confirm Administered Dose 2 mg .ROUTE .[employer]MED ONE Stop: 08/10/20 14:06 Non-Formulary Medication (Melatonin [Melatonin]) 5 mg PO BEDTIME SHAKA Ondansetron HCl (Ondansetron 4 Mg/2 Ml Sdv) 4 mg IVPUSH ONETIME ONE Stop: 08/09/20 08:54 Last Admin: 08/09/20 09:01 Dose: 4 mg Documented by: Ondansetron HCl (Ondansetron 4 Mg/2 Ml Sdv) Confirm Administered Dose 4 mg .ROUTE .[employer]MED ONE Stop: 08/10/20 14:06 Propofol (Propofol 200 Mg/20 Ml Sdv) Confirm Administered Dose 200 mg .ROUTE .[employer]MED ONE Stop: 08/10/20 14:06 Rocuronium [place] (Rocuronium 50 Mg/5 Ml Vial) Confirm Administered Dose 50 mg .ROUTE .[employer]MED ONE Stop: 08/10/20 14:06
--- NOTE | 2020-08-10 16:16 | PCM48HPAN ---
Post Anesthesia Note - EVALUATION WITHIN 48HRS OF ANESTHETIC Vital Signs in Normal Range: Yes Patient Participated in Evaluation: Yes Respiratory Function Stable: Yes Airway Patent: Yes Cardiovascular Function Stable: Yes Hydration Status Stable: Yes Pain Control Satisfactory: Yes Nausea and Vomiting Control Satisfactory: Yes Mental Status Recovered: Yes Vital Signs: Last Vital Signs Temp 99.4 C H 08/10/20 16:10 Pulse 112 H 08/10/20 16:10 Resp 12 08/10/20 16:10 BP 98/50 L 08/10/20 16:10 Pulse Ox 97 08/10/20 16:10
--- NOTE | 2020-08-19 11:35 | PCM.SN.2 ---
#1 Interpretation EKG Date: 08/10/20 Rhythm: NSR Rate (Beats/Min): 72 [place]: Normal P-Wave: Present QRS: Normal ST-T: Normal QT: Normal
== END 2020-08-10 19:48 | DRG 419 ==
LOC: JD.ED 08:34 → JD.MS 10:59
PROVIDERS: ADMIT Surgery; ATTEND Surgery
PROC: 0FT44ZZ Resection of Gallbladder, Percutaneous Endoscopic Approach (ICD-10-PCS; principal; 2020-08-09)
DX: K80.20 Calculus of gallbladder without cholecystitis without obstruction (principal); K80.10 Calculus of gallbladder with chronic cholecystitis without obstruction; F41.9 Anxiety disorder, unspecified; F32.9 Major depressive disorder, single episode, unspecified; F43.10 Post-traumatic stress disorder, unspecified; Z20.822 Contact with and (suspected) exposure to COVID-19; Z79.899 Other long term (current) drug therapy; Z87.891 Personal history of nicotine dependence
CPT/HCPCS: 36415; 76705; 80053; 81001; 83690; 84703; 85025; 87086; 87635; J1170; J2405; J7030; 00790; 74181; 74181-26; 87088; 87186; 93005; 96374; 96375; 99140; 99285; 99285-25; A9270-GY; J0690; J1100; J1885; J2250; J2704; J3010; J3480; J3490; J7120; U0002